=== PATIENT | male | born 1960 | race Two or more races ===

== ENCOUNTER 2023-11-21 12:36 | Emergency (ER) | payer MEDICAID, OTHER ==
[~2023-11-21] VITALS: Ht 160 cm; Wt 79.5 kg
[~2023-11-21 12:36] MED LIST: AMOX-457 PO; DOCU-385 PO; HYDR-4062 PO
[2023-11-21 12:39] VITALS: BP 162/85; PULSE 74; RESP 18; TEMP 98.5
[2023-11-21] MEDS ORDERED: CEPH-558 PO (15:01)
[2023-11-21] MEDS: CEPHALEXIN MONOHYDRATE 500 MG CAPSULE PO ONE (15:11)
== END 2023-11-21 15:44 | disposition home or self-care (01) ==
LOC: EMS 12:36
DX: L03.114 Cellulitis of left upper limb (principal)
CPT/HCPCS: 99283